=== PATIENT | male | born 1980 | race Caucasian/White ===

== ENCOUNTER 2017-03-25 11:42 | Emergency (ER) | payer SELFPAY ==
[~2017-03-25] VITALS: Ht 190.5 cm; Wt 117.9 kg
[~2017-03-25 11:42] MED LIST: 'PARAFON FORTE500 M1 PO; ANUSOL-HC25 MG RC; ATIVAN1 MG PO; AUGMENTIN 875 M1 TAB PO; AUGMENTIN 875875 MG PO; AVPAK AZITHROM250 MG PO; BACTRIM DS 8001 TA1 PO; CHOLESTEROL MED; COLCHICINE0.5 MG PO; FLEXERIL10 MG PO; HYDROCODONE BIT1 T11 PO; INDOCIN50 MG PO; KEFLEX500 MG PO; LIDEX0.05% T; LISINOPRIL2.5 MG; MEDROL DOSEPAK4 MG PO; MOTRIN800 MG PO; NAPROSYN500 MG PO; NEURONTIN300 MG PO; NO DAILY MEDS; PRAVACHOL40 MG PO; PREDNICOT20 MG PO; PREDNISONE20 M1 PO; PRILOSEC20 M1 PO; PROTONIX20 MG; SYNTHROID,LEVO50 MCG PO; TRAMADOL HCL50 MG PO; VICODIN 5/500 505 MG PO
[2017-03-25 12:00] VITALS: BP 140/90
[2017-03-25] MEDS ORDERED: NAPROSYN500 MG PO (13:40)
[2017-03-25] MEDS ORDERED: MEDROL DOSEPAK4 MG PO (13:40)
== END 2017-03-25 13:46 | disposition home or self-care (01) ==
LOC: ED 11:42
DX: S80.01XA Contusion of right knee, initial encounter (principal); G89.29 Other chronic pain; F17.200 Nicotine dependence, unspecified, uncomplicated; Z79.899 Other long term (current) drug therapy; X58.XXXA Exposure to other specified factors, initial encounter; Y93.89 Activity, other specified; Y92.89 Other specified places as the place of occurrence of the external cause; Y99.9 Unspecified external cause status

== ENCOUNTER → 2017-06-22 | Outpatient (CLI) | payer MEDICAID | END | disposition home or self-care (01) | LOC: ORTHO 02:07 | DX: M79.641 Pain in right hand (principal); M79.642 Pain in left hand; R20.0 Anesthesia of skin; G56.03 Carpal tunnel syndrome, bilateral upper limbs ==

== ENCOUNTER 2017-08-11 12:14 | Emergency (ER) | payer MEDICARE, MEDICAID ==
[~2017-08-11] VITALS: Ht 190.5 cm; Wt 103.9 kg
[2017-08-11 12:21] VITALS: BP 152/94
[2017-08-11 12:31] LABS: BASO % 0.6 % (0.0-1.0); EOS # 0.1 10*3/uL (0.0-0.4); EOS % 2.5 % (1.0-4.0); HEMATOCRIT 39.4 % (42.0-52.0); HEMOGLOBIN 13.8 g/dl (14.0-18.0); LYMPH # 1.9 10*3/uL (1.3-4.4); LYMPH % 35.2 % (27.0-41.0); MEAN CELL VOLUME 82.8 fl (80.0-94.0); MEAN PLATELET VOLUME 10.1 fl (9.6-12.3); MONO # 0.3 10*3/uL (0.1-1.0); MONO % 6.1 % (3.0-9.0); NEUT # 2.9 10*3/uL (2.3-7.9); NEUT % 55.2 % (47.0-73.0); PLATELET COUNT AUTOMATED 183 10*3/uL (130-400); RED BLOOD COUNT 4.76 10*6/uL (4.50-5.90); RED CELL DISTRI WIDTH 12.5 % (0-14.5); WHITE BLOOD COUNT 5.3 10*3/uL (4.8-10.8)
[2017-08-11 12:47] LABS: ALBUMIN 3.6 gm/dl (3.1-4.5); ALKALINE PHOSPHATASE 55 U/L (45-117); BUN 10 mg/dl (7-24); CHLORIDE 108 mmol/L (98-107); LIPASE 153 U/L (73-393); SGOT/AST 12 IU/L (3-35); SGPT/ALT 23 U/L (12-78); SODIUM 141 mmol/L (136-145); TOTAL PROTEIN 6.6 gm/dL (6.4-8.2)
[2017-08-11 12:52] LABS: CREATININE 1.08 mg/dL (0.70-1.30)
[2017-08-11 12:55] LABS: BILIRUBIN NEGATIVE (NEGATIVE); BLOOD NEGATIVE (NEGATIVE); CLARITY CLEAR (CLEAR); COLOR YELLOW (YELLOW); GLUCOSE NEGATIVE (NEGATIVE); KETONE NEGATIVE (NEGATIVE); LEUKO ESTERASE NEGATIVE (NEGATIVE); NITRITE NEGATIVE (NEGATIVE); PH 6.5 (5.0-9.0); UROBILINOGEN 0.2 E.U./dl (0.2-1.0)
[2017-08-11 13:10] LABS: CALCIUM OXALATE CRYSTALS TRACE
[2017-08-11] MEDS ORDERED: FLAGYL500 MG PO (13:54)
[2017-08-11] MEDS ORDERED: CIPRO500 MG PO (13:54)
== END 2017-08-11 14:03 | disposition home or self-care (01) ==
LOC: ED 12:14
PROVIDERS: Emergency Medicine
DX: K52.9 Noninfective gastroenteritis and colitis, unspecified (principal); R19.7 Diarrhea, unspecified; R35.0 Frequency of micturition; F17.200 Nicotine dependence, unspecified, uncomplicated; Z79.899 Other long term (current) drug therapy

== ENCOUNTER → 2017-10-22 | Day surgery (SDC) | payer OTHER ==
[2017-10-15 11:59] VITALS: BP 136/71
[~2017-10-22] VITALS: Ht 190.5 cm; Wt 110.2 kg
[~2017-10-22] MED LIST changes: +CIPRO500 MG PO; +FLAGYL500 MG PO; +GABAPENTIN400 MG PO; +LEVOTHYROXINE175 MCG PO; +NORCO 5-325 TA1 EACH PO; +OMEPRAZOLE D/R20 MG PO; +ZOCOR10 MG PO
--- NOTE | ~2017-10-22 | O ---
[place], [place] OPERATIVE NOTE [id number] UNIT #: [id number] ROOM: DOCTOR: MATA UREÑA DO BIRTHDATE: [birth year] DOS: 10/22/2017 PREOPERATIVE DIAGNOSIS: Left carpal tunnel syndrome. POSTOPERATIVE DIAGNOSIS: Left carpal tunnel syndrome. PROCEDURE: Left carpal tunnel release. ANESTHESIA: MAC. SURGEON: Mata Ureña DO. TOURNIQUET TIME: 20 minutes at 250 mmHg. COMPLICATIONS: None. INDICATIONS FOR OPERATION: This is a 37-year-old male who has been seen in the office regarding pain, paresthesia, numbness left hand. Please see details of office note regarding additional patient's clinical history, findings, and indications for surgery. The patient has left carpal tunnel syndrome. Failed nonsurgical treatment. I therefore discussed with him the option for surgery. Recommendations were for left carpal tunnel release. He did wish to proceed. Informed consent obtained. DESCRIPTION OF PROCEDURE: The patient had been identified and the operative limb marked. He was taken to the operative suite, transferred to the position supine. He was administered MAC sedation by the Department of Anesthesia. Left wrist and hand were then sterilely prepped and a total of 10 mL plain 0.5% Sensorcaine was locally infiltrated under the palmar side of left hand in line with skin incision. A well-padded tourniquet was placed on the left arm. Left arm, wrist and hand were then prepped and draped in the usual sterile fashion. An indelible marker was used to cesario an incision from the distal flexion crease of the wrist into the palm of the hand in line with the radial side of the ring finger, ending at the intersection of Rodríguez's cardinal line. A #15 blade was then used to incise skin, subcutaneous tissue and fat. Self-retraining retractor used for exposure. A #15 blade used to sharply incise down to the transverse carpal ligament. Transverse carpal ligament was directly visualized and under direct visualization, transverse carpal ligament was sharply divided in line with the skin incision exposing markedly compressed and tight median nerve and carpal canal and secured. No unusual synovitic changes or masses noted in the carpal canal. A blunt tip scissor was used to completely decompress both the distal and palmar and into the distal portion of the forearm. After verifying complete decompression, the incision was copiously irrigated and closed. Interrupted 3-0 Monocryl was used for subcutaneous closure. Skin adhesive used on skin. Sterile dressings applied, Xeroform, 4 x 4 and a bulky hand dressing placed. Tourniquet released with immediate circulation returning to the distal extremity. With the patient having tolerated the procedure well and sponge and needle counts having been correct, the patient was transferred to his hospital cart and to recovery in stable and satisfactory condition. [place], [place] OPERATIVE NOTE NAME: PATSYMARCIA A UNIT #: [id number] ROOM: DOCTOR: MATA UREÑA DO BIRTHDATE: [birth year] MATA UREÑA DO CM:OPRECORD:OPERATIVE NOTE 0830 MATA UREÑA DO 10/22/17 1008 interface
[2017-10-22 06:45] VITALS: BP 132/66
[2017-10-22 08:18] VITALS: BP 130/90
[2017-10-22 08:33] VITALS: BP 137/92
[2017-10-22 08:48] VITALS: BP 130/96
== END | disposition home or self-care (01) ==
LOC: SDC 10-15 11:00
DX: G56.02 Carpal tunnel syndrome, left upper limb (principal); I10 Essential (primary) hypertension; F41.9 Anxiety disorder, unspecified; F17.210 Nicotine dependence, cigarettes, uncomplicated; Z79.899 Other long term (current) drug therapy; Z98.890 Other specified postprocedural states

== ENCOUNTER 2018-12-24 16:04 | Emergency (ER) | payer OTHER ==
[~2018-12-24] VITALS: Ht 190.5 cm; Wt 115.7 kg
[2018-12-24 16:05] VITALS: BP 140/99
[2018-12-24] MEDS ORDERED: PROVENTIL HFA6.7 GM INH ×2 (16:27→17:08)
[2018-12-24] MEDS ORDERED: GUAIFENESIN600 MG PO ×2 (16:27→17:08)
[2018-12-24] MEDS ORDERED: PREDNISONE50 MG PO ×2 (16:27→17:08)
== END 2018-12-24 16:34 | disposition home or self-care (01) ==
LOC: ED 16:04
DX: J20.9 Acute bronchitis, unspecified (principal); I10 Essential (primary) hypertension; J45.909 Unspecified asthma, uncomplicated; E78.00 Pure hypercholesterolemia, unspecified; F17.200 Nicotine dependence, unspecified, uncomplicated; Z79.899 Other long term (current) drug therapy

== ENCOUNTER → 2021-08-10 | Outpatient (CLI) | payer OTHER ==
[~2021-08-10] MED LIST changes: +GUAIFENESIN600 MG PO; +PREDNISONE50 MG PO; +PROVENTIL HFA6.7 GM INH
== END | disposition home or self-care (01) ==
LOC: US 17:10
PROVIDERS: ATTEND Internal Medicine
DX: M71.21 Synovial cyst of popliteal space [Baker], right knee (principal); R22.41 Localized swelling, mass and lump, right lower limb

== ENCOUNTER 2022-02-22 12:44 | Emergency (ER) | payer OTHER ==
[~2022-02-22] VITALS: Ht 190.5 cm; Wt 117.9 kg
[2022-02-22 12:49] VITALS: BP 148/109
== END 2022-02-22 14:47 | disposition left against medical advice (07) ==
LOC: ED 12:44
DX: S49.92XA Unspecified injury of left shoulder and upper arm, initial encounter (principal); W17.89XA Other fall from one level to another, initial encounter; Y93.89 Activity, other specified; Y92.89 Other specified places as the place of occurrence of the external cause; Y99.8 Other external cause status

== ENCOUNTER 2022-10-10 19:32 | Emergency (ER) | payer OTHER ==
[~2022-10-10] VITALS: Ht 190.5 cm; Wt 115.7 kg
[2022-10-10 19:55] VITALS: BP 165/131
[2022-10-10 20:26] LABS: BASO % 0.7 % (0.0-1.0); EOS # 0.1 10*3/uL (0.0-0.4); EOS % 3.4 % (1.0-4.0); HEMATOCRIT 41.1 % (42.0-52.0); LYMPH # 1.1 10*3/uL (1.3-4.4); LYMPH % 38.3 % (27.0-41.0); MEAN CELL VOLUME 83.4 fl (80.0-94.0); MEAN CORPUSCULAR HGB 28.4 pg (27.0-31.0); MEAN CORPUSCULAR HGB CONC 34.1 g/dl (33.0-37.0); MEAN PLATELET VOLUME 10.3 fl (9.6-12.3); MONO # 0.4 10*3/uL (0.1-1.0); MONO % 12.2 % (3.0-9.0); NEUT # 1.3 10*3/uL (2.3-7.9); NEUT % 45.1 % (47.0-73.0); PLATELET COUNT AUTOMATED 206 10*3/uL (130-400); RED BLOOD COUNT 4.93 10*6/uL (4.50-5.90); RED CELL DISTRI WIDTH 12.7 % (0-14.5)
[2022-10-10 20:47] LABS: ALKALINE PHOSPHATASE 62 U/L (46-116); BUN 11 mg/dl (9-23); CHLORIDE 105 mmol/L (98-107); CREATININE 0.91 mg/dL (0.70-1.30); POTASSIUM 3.9 mmol/L (3.4-5.1); SGPT/ALT 12 U/L (10-49); SODIUM 137 mmol/L (136-145); TOTAL PROTEIN 6.3 gm/dL (6.0-8.0)
== END 2022-10-11 02:43 | disposition home or self-care (01) ==
LOC: ED 19:32
PROVIDERS: Emergency Medicine
DX: M79.604 Pain in right leg (principal); F41.9 Anxiety disorder, unspecified; R07.9 Chest pain, unspecified; R20.2 Paresthesia of skin; F17.200 Nicotine dependence, unspecified, uncomplicated; Z79.899 Other long term (current) drug therapy; Z90.89 Acquired absence of other organs

== ENCOUNTER 2024-10-26 18:05 | Observation (INO) | payer OTHER ==
[~2024-10-26] VITALS: Ht 182.8 cm; Wt 99.8 kg
[2024-10-26 18:05] VITALS: BP 144/81
[2024-10-26 18:28] LABS: BASO % 0.7 % (0.0-1.0); EOS % 0.7 % (1.0-4.0); HEMATOCRIT 41.9 % (42.0-52.0); MEAN CORPUSCULAR HGB 27.9 pg (27.0-31.0); MEAN CORPUSCULAR HGB CONC 34.4 g/dl (33.0-37.0); MEAN PLATELET VOLUME 9.5 fl (9.6-12.3); MONO # 0.5 10*3/uL (0.1-1.0); NEUT # 3.7 10*3/uL (2.3-7.9); NEUT % 82.3 % (47.0-73.0); PLATELET COUNT AUTOMATED 182 10*3/uL (130-400); RED BLOOD COUNT 5.17 10*6/uL (4.50-5.90); RED CELL DISTRI WIDTH 12.7 % (0-14.5); WHITE BLOOD COUNT 4.5 10*3/uL (4.8-10.8)
[2024-10-26 18:39] LABS: ACT PARTIAL THROMBO TIME 26.8 SECONDS (20.0-32.1)
[2024-10-26 18:46] LABS: ALKALINE PHOSPHATASE 64 U/L (46-116); BUN 17 mg/dl (9-23); CHLORIDE 102 mmol/L (98-107); POTASSIUM 3.7 mmol/L (3.4-5.1); SGPT/ALT 68 U/L (5-49); TOTAL PROTEIN 6.6 gm/dL (6.0-8.0)
[2024-10-26 20:13] VITALS: BP 134/79
[2024-10-26] MEDS ORDERED: ACETAMINOPHEN 325 MG TAB PO ONE (20:20)
[2024-10-26 21:34] VITALS: BP 140/85
[2024-10-26] MEDS ORDERED: BISACODYL 5 MG TAB PO PRN (21:40)
[2024-10-26] MEDS ORDERED: TEMAZEPAM 15 MG CAP PO PRN (21:40)
[2024-10-26] MEDS ORDERED: Magnesium Hydroxide 30 ML UDC PO PRN (21:40)
[2024-10-26] MEDS ORDERED: ACETAMINOPHEN 650 MG SUPP R PRN (21:40)
[2024-10-26] MEDS ORDERED: ACETAMINOPHEN 325 MG TAB PO PRN (21:40)
[2024-10-26] MEDS ORDERED: BISACODYL 10 MG SUPP R PRN (21:40)
[2024-10-26] MEDS ORDERED: Dexamethasone Sodium Phospha 4 MG/ML VIAL IV ONE (21:45)
[2024-10-26] MEDS ORDERED: ASPIRIN ENTERIC COATED 81 MG TAB PO ONE (21:45)
[2024-10-26] MEDS ORDERED: diphenhydrAMINE hydrochloride 50 MG/ML VIAL IV ONE (21:45)
[2024-10-26] MEDS ORDERED: Metoclopramide Hydrochloride 10 MG/2 ML VIAL IV ONE (21:45)
[2024-10-26] MEDS ORDERED: LISINOPRIL 10 MG TAB PO SCH (21:45)
[2024-10-26] MEDS ORDERED: SODIUM CHLORIDE 0.9% 500 ML IV ONE (21:50)
[2024-10-26] MEDS ORDERED: MAGNESIUM SULFATE 50 ML IV ONE ×2 (21:50→22:35)
[2024-10-26] MEDS ORDERED: Ketorolac Tromethamine 15 MG/ML VIAL IV ONE (21:50)
[2024-10-26 22:15] VITALS: BP 146/86
[2024-10-26 22:44] VITALS: BP 135/81
[2024-10-27 02:06] VITALS: BP 106/60
[2024-10-27 04:53] VITALS: BP 125/81
[2024-10-27 06:19] LABS: ALKALINE PHOSPHATASE 69 U/L (46-116); BUN 15 mg/dl (9-23); CHLORIDE 102 mmol/L (98-107); CHOLESTEROL 179 mg/dL (<200); FREE T4 0.82 ng/dl (0.89-1.76); LDL CHOLESTEROL 86 mg/dL (9-159); POTASSIUM 4.2 mmol/L (3.4-5.1); SGPT/ALT 62 U/L (5-49); TOTAL PROTEIN 6.6 gm/dL (6.0-8.0); TRIGLYCERIDES 280 mg/dl (<150)
[2024-10-27 07:02] LABS: BASO % 0.5 % (0.0-1.0); EOS % 0.5 % (1.0-4.0); HEMATOCRIT 43.8 % (42.0-52.0); MEAN CORPUSCULAR HGB 28.1 pg (27.0-31.0); MEAN CORPUSCULAR HGB CONC 33.1 g/dl (33.0-37.0); MEAN PLATELET VOLUME 10.4 fl (9.6-12.3); MONO # 0.4 10*3/uL (0.1-1.0); MONO % 9.9 % (3.0-9.0); NEUT # 2.8 10*3/uL (2.3-7.9); NEUT % 74.9 % (47.0-73.0); PLATELET COUNT AUTOMATED 209 10*3/uL (130-400); RED BLOOD COUNT 5.16 10*6/uL (4.50-5.90); RED CELL DISTRI WIDTH 13.1 % (0-14.5); WHITE BLOOD COUNT 3.7 10*3/uL (4.8-10.8)
[2024-10-27 07:10] LABS: MEAN CELL VOLUME 84.9 fl (80.0-94.0)
[2024-10-27 08:50] VITALS: BP 126/82
[2024-10-27] MEDS ORDERED: Enoxaparin Sodium 40 MG/0.4 ML SYR SC SCH (10:00)
[2024-10-27] MEDS ORDERED: ATORVASTATIN CALCIUM 40 MG TABLET PO SCH (10:00)
[2024-10-27 11:01] VITALS: BP 136/83
[2024-10-27] MEDS ORDERED: Ketorolac Tromethamine 30 MG/ML VIAL IV ONE (11:30)
== END 2024-10-27 12:33 | disposition home or self-care (01) ==
LOC: ED 18:05 → EDHOLD 21:08
PROVIDERS: Internal Medicine; Student in an Organized Health Care Education/Training Program; ADMIT Internal Medicine; ATTEND Internal Medicine
DX: R07.89 Other chest pain (principal); G44.59 Other complicated headache syndrome; E87.1 Hypo-osmolality and hyponatremia; E78.5 Hyperlipidemia, unspecified; R74.01 Elevation of levels of liver transaminase levels; D72.810 Lymphocytopenia; I10 Essential (primary) hypertension; E03.9 Hypothyroidism, unspecified; K52.9 Noninfective gastroenteritis and colitis, unspecified; J45.20 Mild intermittent asthma, uncomplicated; F17.210 Nicotine dependence, cigarettes, uncomplicated; Z79.899 Other long term (current) drug therapy

== ENCOUNTER → 2025-07-07 | Outpatient (CLI) | payer OTHER | END | disposition home or self-care (01) | LOC: US 09:02 | PROVIDERS: ATTEND Nurse Practitioner Family | DX: E03.9 Hypothyroidism, unspecified (principal) ==